=== PATIENT | male | born 1965 | race African-American/Black ===

== ENCOUNTER 2017-05-20 14:52 | Inpatient (IN) ==
--- NOTE | 2017-05-20 16:23 | XRay Report ---
History: Chest pain Date: 05/20/2017 Study: Chest x-ray PA and lateral Comparison exam: No previous currently available The cardiac silhouette is upper normal in size. There is no mediastinal mass. The pulmonary vasculature is not engorged. The lungs and pleural spaces are clear. There is mild thoracic spondylosis. Impression: No acute cardiopulmonary process PROCEDURE INTERPRETED AT [facility] Final Report Signed by: Dr. Mildred Arcos
[2017-05-20 17:13] LABS: Basophils % 0.2 % (0.0-0.8); Eosinophils # 0.1 10*3/uL (0.0-0.87); Eosinophils % 0.5 % (0.00-10.9); Hematocrit 49.4 VOL% (42.0-52.0); Hemoglobin 16.2 GM/DL (14.0-18.0); Immature Granulocytes % 0.4 %; Immature Granulocytes Absolute 0.04 #; Lymphocytes # 3.5 10*3/uL (1.4-4.0); Lymphocytes % 36.5 % (21.2-54.2); Mean Corpuscular HGB Conc 32.8 GM/DL (32-36); Mean Corpuscular Hemoglobin 23 PG (27-34); Mean Platelet Volume 9.5 FL (9.6-12.0); Monocytes # 0.8 10*3/uL (0.11-0.8); Monocytes % 8.4 % (1.7-12.7); Neutrophils # 5.2 10*3/uL (1.4-7.4); Platelet Count 302 T/CUMM (130-400); Red Blood Count 6.96 MC/CUMM (3.8-5.5); Red Cell Distribution Width 16.2 % (9.3-17.3); White Blood Count 9.7 T/CUMM (4-12)
[2017-05-20 17:28] LABS: D-Dimer <= 0.5 MG/L FEU; PT Patient Result 10.9 SECS; Partial Thromboplastin Time 28.7 SECS (0-40)
[2017-05-20 17:40] LABS: Alanine Aminotransferase 34 U/L (16-61); Alkaline Phosphatase 64 U/L (45-117); Aspartate Amino Transferase 34 U/L (0-37); Bilirubin,Total < 0.39 MG/DL (0.2-1.0); Blood Urea Nitrogen 8 MG/DL (7-18); CKMB % 4.2 %; Calcium 9.7 MG/DL (8.5-10.1); Glucose 100 MG/DL (74-106); Magnesium 2.1 MG/DL (1.8-2.4); Osmolality,Calculated 278.3 MOS/KG (273-304); Potassium 3.9 MMOL/L (3.5-5.1); Sodium 141 MMOL/L (136-145); Total Protein 7.7 G/DL (6.4-8.3)
[2017-05-20] MEDS ORDERED: ONDANSETRON 4 MG/2 ML VIAL IV STA (17:51)
[2017-05-20] MEDS ORDERED: METOPROLOL TARTRATE 5 MG/5 ML VIAL IV STA (17:51)
[2017-05-20] MEDS ORDERED: ASPIRIN 325 MG TABLET PO STA (17:51)
[2017-05-20] MEDS ORDERED: NITROGLYCERIN 2% OINT 1 INCH/GM PACK TOP STA (17:51)
[2017-05-20] MEDS ORDERED: ENOXAPARIN 100 MG/ML SYRINGE SUBCUT STA (17:51)
[2017-05-20] MEDS ORDERED: MORPHINE 2 MG/1 ML SYRINGE IV STA (17:51)
[2017-05-20] MEDS ORDERED: NITROGLYCERIN 2% OINT 1 INCH/GM PACK TOP ONE (17:58)
[2017-05-20] MEDS ORDERED: ENOXAPARIN 100 MG/ML SYRINGE SUBCUT ONE (17:58)
[2017-05-20] MEDS ORDERED: MORPHINE 2 MG/1 ML SYRINGE ONE (17:59)
[2017-05-20] MEDS ORDERED: ONDANSETRON 4 MG/2 ML VIAL ONE (17:59)
[2017-05-20] MEDS ORDERED: METOPROLOL TARTRATE 5 MG/5 ML VIAL IV ONE (17:59)
[2017-05-20] MEDS ORDERED: ASPIRIN 325 MG TABLET ONE (17:59)
--- NOTE | 2017-05-20 18:00 | Emergency Department Note ---
Fausto Capps Brittany, am scribing for, and in the presence of, Tono Howe MD 17:54. Carley Capps Charles R, MD, personally performed the services described in this documentation, ascribed by Lisa Lambert in my presence, and it is both accurate and complete . Arrival - Arrival Chief Complaint: Chest Pain Stated Complaint: chest pain x 1 mo. 2 episodes today ED Nursing Triage Note: Pt c/o chest pain with some SOB off and on x 1 month with exertion. Mode of Arrival: Ambulatory Limitations: No Limitations Source: Patient, RN Notes Reviewed Time Seen by Provider: 05/20/17 17:37 - History of Present Illness HPI Narrative: Patient is a 52 y/o black male presenting to the ED with c/o mid-sternal chest pain with an onset of a month, worsening in the past two days. Patient denies any associated sxs of SOB, N/V, diaphoresis, or radiation of pain to the arm or neck. Patient reports pain occurs in intermittent episodes, most often on exertion. He states that this pain is steady, lasting about 30 minutes in duration in each episode. Patient states that he noticed pain initially about a month ago when picking up a heavy object, then again a week or so later when picking up his 50 lb. grandson. Patient then reports that yesterday pain occurred, more severe than prior episodes a month ago. Pain resolved itself later in the day, only to onset again earlier today similar in severity to yesterday's episode. He reports having a stress test "a long time ago," but none recently. He reports a history of HTN, but denies any hx of PA or CHF. His father passed at the age of 83 due to heart disease. He admits to everyday use of cigarettes. Patient has no other complaint/pain in the ED at this time. Onset (ago): month(s) (1) Consistency: intermittent Severity: severe Severity scale (1-10): 9 Quality: aching Allergies/Adverse Reactions: Allergies Allergy/AdvReac Type Severity Reaction Status Date / Time No Known Allergies Allergy Verified 05/20/17 15:02 Review of System - Review of System 12 point system: reviewed and no additional remarkable complaints except as stated - Review of System Constitutional: Absent: chills, diaphoresis, fever Eyes: Absent: vision change Head/Ears/Nose/Throat: Absent: nasal drainage, sore throat Respiratory: Absent: respiratory distress Cardiovascular: Present: chest pain Gastrointestinal: Absent: abdominal pain, nausea, vomiting, diarrhea, constipation Genitourinary male: Absent: urgency, dysuria, frequency Musculoskeletal: Absent: arm pain, back pain, leg pain, neck pain Skin: Absent: rash Neurological: Absent: headache Psychiatric: Absent: anxiety, depression Medical,Surgical,& Family Hx - Medical History Cardio: History of: Hypertension - Surgical History Surgical History: noncontributory - Family History Family History: Reports;: Family Heart Disease, Family Hypertension - Social History Smoking Status: Current every day smoker Exam Vital Signs: Vital Signs Temperature 100.4 F H 05/20/17 15:02 Pulse Rate 92 H 05/20/17 17:05 Respiratory Rate 16 05/20/17 17:05 Blood Pressure 158/95 05/20/17 17:05 O2 Sat by Pulse Oximetry 98 05/20/17 17:05 - General General appearance: alert, in no apparent distress - Head Head exam: Present: atraumatic, normocephalic, normal inspection - Eye Eye exam: Present: normal appearance, PERRL, EOMI - ENT ENT exam: Present: normal exam, normal oropharynx - Neck Neck exam: Present: normal inspection, full ROM, trachea midline - Chest Chest inspection: Present: normal inspection, symmetric chest wall rise - Respiratory Respiratory exam: Present: normal lung sounds bilaterally - Cardiovascular Cardiovascular exam: Present: regular rate, normal rhythm, normal heart sounds - Abdominal Exam Abdominal exam: Present: soft, normal bowel sounds. Absent: tenderness - Extremities Exam Extremities exam: Present: normal inspection - Back Exam Back exam: Present: normal inspection - Neurological Exam Neurological exam: Present: alert, oriented X3, CN II-XII intact. Absent: motor sensory deficit - Psychiatric Psychiatric exam: Present: normal affect, normal mood - Skin Skin exam: Present: warm, dry Course - Consultations Consultation #1: Dr. Lee rn spine was consulted he is seen patient in the emergency room for admission Time: 17:56 Results - Labs CBC & BMP: 05/20/17 17:00 05/20/17 17:00 Lab Results: I have reviewed the patients labs Labs: Laboratory Tests 05/20/17 05/20/17 17:00 17:00 WBC 9.7 RBC 6.96 H Hgb 16.2 Hct 49.4 MCV 71.0 L MCH 23 L Plt Count 302 MPV 9.5 L INR 1.0 PT Patient/Control Mix 10.9 D-Dimer, Quantitative <= 0.5 Circ Anticoag PTT 28.7 Laboratory Tests 05/20/17 17:00 Sodium 141 Potassium 3.9 Chloride 105 Carbon Dioxide 29 BUN 8 Creatinine 0.90 Glucose 100 Total Creatine Kinase 337 H CK-MB (CK-2) 14.3 H Troponin I 3.860 H Globulin 3.7 H Albumin/Globulin Ratio 1.0 L - Diagnostic Findings Procedure: Chest x-ray: report reviewed by me (No acute cardiopulmonary process. ) Critical Care Time Critical Care Time: Yes Total Critical Care Time: 30 Disposition Clinical Impression: Non-ST elevation (NSTEMI) myocardial infarction, Chest pain, Hypertension, Fever, Elevated troponin Case discussed with: patient, patient's family Disposition: Still a Patient Condition: Guarded Time of Disposition: 17:57
[2017-05-20] MEDS ORDERED: ONDANSETRON 4 MG/2 ML VIAL IV PRN (18:08)
[2017-05-20] MEDS ORDERED: ACETAMINOPHEN 325 MG TABLET PO PRN (18:08)
[2017-05-20] MEDS ORDERED: ZALEPLON 5 MG CAPSULE PO PRN (18:08)
[2017-05-20] MEDS ORDERED: hydrALAZINE 20 MG/1 ML VIAL IV PRN (18:08)
[2017-05-20] MEDS ORDERED: TICAGRELOR 90 MG TABLET PO STA (18:08)
[2017-05-20] MEDS ORDERED: NITROGLYCERIN SL 0.4 MG TABLET SL PRN (18:08)
--- NOTE | 2017-05-20 18:24 | Cardiology History & Physical ---
Assessment and Plan - Time spent with patient Time spent with patient: Greater than 30 minutes (Examination, interview chart review discussion with Dr. Howe and documentation/orders) (1) Non-ST elevation (NSTEMI) myocardial infarction Status: Acute Assessment and plan: Do not know if this is related to his fever or not he has very classic symptoms I guess we should consider endocarditis as etiology of troponin elevation fever. Nothing to suggest pulmonary embolism by story. His chest x-ray is clear Current Visit: Yes (2) Hypertension Status: Acute Current Visit: Yes Qualifiers: Hypertension type: essential hypertension Qualified Code(s): I10 - Essential (primary) hypertension (3) Fever Status: Acute Assessment and plan: Blood cultures are ordered. Urine is also ordered. Current Visit: Yes (4) Elevated troponin Status: Acute Current Visit: Yes History of Present Illness Chief complaint: Chest pain History of present illness: Mr. Vaca is a 52 year old male with past medical history of hypertension who is followed in the outpatient setting intermittently through the urgent care clinic he does not see a physician on a routine follow-up. He just goes to immediate care when he needs his medicines. His only medicines at home are losartan 50 mg daily does not take an aspirin is not a cholesterol medicine. 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 He has a family history of coronary disease but none premature his father had a myocardial infarction and at 80. 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 It went away was not associated with nausea or vomiting. He has not had any other symptoms until today while he was spreading the [place] tightened down the load on his flatbed when he developed this same pain that did not radiate in his arm was not associated with nausea vomiting but. It resolved when he stopped. He has not had any rest discomfort. He came to the emergency room was found to have severely uncontrolled blood pressure and also interestingly a temperature of 100.4 with elevated CK CK-MB and troponin. He appears to be in no distress but continues to have sinus tachycardia and uncontrolled hypertension please see the vitals as charted. I discussed with Dr. Howe on the phone once his troponin came back and I came to the emergency room to evaluate the patient in room 17. He was a coming by his and 1 of his children. Home Medications Medication Instructions Recorded Confirmed Type Losartan Potassium 50 mg PO QPM 05/20/17 05/20/17 History Allergies Allergy/AdvReac Type Severity Reaction Status Date / Time No Known Allergies Allergy Verified 05/20/17 15:02 - Constitutional Constitutional: Absent: anorexia, chills - EENT Eyes: Absent: blurry vision, diplopia Ears: Absent: decreased hearing, ear discharge Nose, mouth and throat: Absent: dysphagia, epistaxis, lip swelling, nasal congestion, neck mass, neck pain - Cardiovascular Cardiovascular: Present: chest pain with activity. Absent: chest pain at rest, dyspnea on exertion, edema - Respiratory Respiratory: Absent: cough, dyspnea, dyspnea on exertion - Gastrointestinal Gastrointestinal: Absent: abdominal pain, bloating, dyspepsia, early satiety - Genitourinary Genitourinary: Absent: difficulty urinating, hematuria, nocturia - Musculoskeletal Musculoskeletal: Absent: arthralgias, joint swelling, limited range of motion - Neurological Neurological: Absent: abnormal speech, behavioral changes, confusion, convulsions, disequilibrium, dizziness - Psychiatric Psychiatric: Absent: anxiety, depression - Endocrine Endocrine: Absent: cold intolerance, heat intolerance - Hematologic/Lymphatic Hematologic/Lymphatic: Absent: easy bleeding, easy bruising Medical,Surgical,& Family Hx - Medical History Cardio: History of: Hypertension - Family History Family History: Reports;: Family Heart Disease, Family Hypertension - Social History Smoking Status: Current every day smoker Frequency of Alcohol Use: Occasionally (Weekend) Type of Drug Use: None Marital Status: Lives With:: Spouse Functional capacity: independent ambulation Cardiology Physical Exam - Constitutional Vitals: Vital Signs Temp Pulse Resp BP Pulse Ox 100.4 F H 92 H 16 158/95 98 05/20/17 15:02 05/20/17 17:05 05/20/17 17:05 05/20/17 17:05 05/20/17 17:05 Intake and Output 05/20/17 05/20/17 05/20/17 07:59 15:59 23:59 Other: Weight 97.522 kg Patient Weight 05/20/17 23:59 Weight 97.522 kg General appearance: no acute distress, over weight - Head Head exam: Present: normal inspection - Eye Eye exam: Present: EOMI Pupils: Present: LAURITA - ENT ENT exam: Present: normal exam - Neck Neck exam: Present: normal inspection - Respiratory Respiratory exam: Present: clear to auscultation bilaterally - Cardiovascular Cardiovascular exam: Present: regular rate and rhythm (S4) - GI/Abdominal GI/Abdominal exam: Present: normal bowel sounds - Extremities Exam Extremities exam: Present: normal inspection - Back Exam Back exam: Present: normal inspection - Neurological Exam Neurological exam: Present: alert, oriented X3 - Psychiatric Psychiatric exam: Present: normal affect, normal mood - Skin Skin exam: Present: normal color Result/EKG - Labs CBC & BMP: 05/20/17 17:00 05/20/17 17:00 Labs: Laboratory Results - last 24 hr 05/20/17 05/20/17 05/20/17 17:00 17:00 17:00 WBC 9.7 RBC 6.96 H Hgb 16.2 Hct 49.4 MCV 71.0 L MCH 23 L MCHC 32.8 RDW 16.2 Plt Count 302 MPV 9.5 L Neut % (Auto) 54.0 Lymph % (Auto) 36.5 [place] % (Auto) 8.4 Eos % (Auto) 0.5 Baso % (Auto) 0.2 Neut # (Auto) 5.2 Lymph # (Auto) 3.5 [place]ether # (Auto) 0.8 Eos # (Auto) 0.1 Baso # (Auto) 0.0 Immature Gran % 0.4 Nucleated RBC % 0.0 Immature Gran # 0.04 Nucleated RBCs # 0.00 INR 1.0 PT Patient/Control Mix 10.9 D-Dimer, Quantitative <= 0.5 Circ Anticoag PTT 28.7 Sodium 141 Potassium 3.9 Chloride 105 Carbon Dioxide 29 Anion Gap 10.9 BUN 8 Creatinine 0.90 GFR Calculation 143 BUN/Creatinine Ratio 8.00 Glucose 100 Calculated Osmolality 278.3 Calcium 9.7 Magnesium 2.1 Total Bilirubin < 0.39 AST 34 ALT 34 Alkaline Phosphatase 64 Total Creatine Kinase 337 H CK-MB (CK-2) 14.3 H CK and CKMB Interp 4.2 Troponin I 3.860 H Total Protein 7.7 Albumin 4.0 Globulin 3.7 H Albumin/Globulin Ratio 1.0 L Quality Measures - VTE Contraindication to Pharmacological VTE Prophylaxis: Already on Theraputic Agent , No Prophylaxis Needed
[2017-05-20] MEDS: SODIUM CHLORIDE 0.45% 1,000 ML IV SCH (22:37)
[2017-05-20] MEDS: TICAGRELOR 90 MG TABLET PO SCH (22:37)
[2017-05-20] MEDS: ATORVASTATIN 80 MG TABLET PO SCH (22:38)
[2017-05-20] MEDS: DOCUSATE SODIUM 100 MG CAPSULE PO SCH (22:40)
[2017-05-20] MEDS: CARVEDILOL 12.5 MG TABLET PO SCH (22:42)
[2017-05-21 05:27] LABS: Basophils % 0.3 % (0.0-0.8); Eosinophils # 0.1 10*3/uL (0.0-0.87); Eosinophils % 1.2 % (0.00-10.9); Hematocrit 46.4 VOL% (42.0-52.0); Hemoglobin 14.9 GM/DL (14.0-18.0); Immature Granulocytes % 0.2 %; Immature Granulocytes Absolute 0.02 #; Lymphocytes # 3.9 10*3/uL (1.4-4.0); Mean Corpuscular HGB Conc 32.1 GM/DL (32-36); Mean Corpuscular Hemoglobin 23 PG (27-34); Mean Corpuscular Volume 71.7 FL (87-102); Monocytes # 0.9 10*3/uL (0.11-0.8); Monocytes % 10.1 % (1.7-12.7); Neutrophils # 4.3 10*3/uL (1.4-7.4); Neutrophils % 46.2 % (38.7-73.9); Platelet Count 288 T/CUMM (130-400); Red Blood Count 6.47 MC/CUMM (3.8-5.5); Red Cell Distribution Width 15.7 % (9.3-17.3); White Blood Count 9.2 T/CUMM (4-12)
[2017-05-21 06:03] LABS: Magnesium 2.1 MG/DL (1.8-2.4); Osmolality,Calculated 279.3 MOS/KG (273-304); Potassium 3.8 MMOL/L (3.5-5.1); Risk Ratio 4.74; Thyroid Stimulating Hormone 2.43 uIU/ml (0.358-3.74)
--- NOTE | 2017-05-21 06:29 | Event Note ---
Patient has a static troponin elevation. His blood pressure has come down he remains to have low-grade temperature. Is 100.4 has come down to 99. This may represent troponin elevation from nonatherosclerotic etiology must consider myocarditis. There is no evidence of myocarditis on his ECG that I can see. I think given his classic symptomatology we still need to continue with left heart cath today. I will discuss with Dr. Grande
[2017-05-21] MEDS ORDERED: ENOXAPARIN 100 MG/ML SYRINGE SUBCUT SCH (06:30)
--- NOTE | 2017-05-21 06:44 | EKG Report ---
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
--- NOTE | 2017-05-21 07:47 | EKG Report ---
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
--- NOTE | 2017-05-21 07:55 | EKG Report ---
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
[2017-05-21] MEDS ORDERED: DIAZEPAM 5 MG TABLET PO ONE (08:00)
[2017-05-21] MEDS ORDERED: diphenhydrAMINE CAP 25 MG CAPSULE PO ONE (08:00)
[2017-05-21] MEDS: LOSARTAN 50 MG TABLET PO SCH (08:21)
[2017-05-21] MEDS: ASPIRIN EC 81 MG TABLET PO SCH (08:21)
[2017-05-21] MEDS: amLODIPine 5 MG TABLET PO SCH (08:22)
[2017-05-21] MEDS: CARVEDILOL 12.5 MG TABLET PO SCH ×2 (08:22→21:32)
[2017-05-21] MEDS: TICAGRELOR 90 MG TABLET PO SCH ×2 (08:22→21:32)
[2017-05-21] MEDS: PANTOPRAZOLE 40 MG TABLET PO SCH (08:22)
[2017-05-21] MEDS: DOCUSATE SODIUM 100 MG CAPSULE PO SCH ×2 (08:47→21:31)
[2017-05-21] MEDS: SODIUM CHLORIDE 0.45% 1,000 ML IV SCH (09:05)
--- NOTE | 2017-05-21 09:21 | EKG Report ---
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
[2017-05-21] MEDS ORDERED: HEPARIN/NACL 0.9% 2 UNITS/ML 500 ML IV ONE ×2 (09:45→09:46)
[2017-05-21] MEDS ORDERED: HYDROmorphone 2 MG/1 ML VIAL ONE (09:45)
[2017-05-21] MEDS ORDERED: NITROGLYCERIN DRIP 50 MG/250 ML BOTTLE IV ONE (09:45)
[2017-05-21] MEDS ORDERED: LIDOCAINE 1% 20 ML VIAL ONE (09:45)
[2017-05-21] MEDS ORDERED: VERAPAMIL 5 MG/2 ML VIAL ONE (09:45)
[2017-05-21] MEDS ORDERED: MIDAZOLAM 2 MG/2 ML VIAL ONE (09:45)
[2017-05-21] MEDS ORDERED: TICAGRELOR 90 MG TABLET ONE (10:08)
--- NOTE | 2017-05-21 10:52 | Cardiac Catheterization ---
Date of Procedure:: 05/21/17 Procedure: CLINICAL HISTORY: Please see the history and physical. The patient presented with unstable angina and is undergoing cardiac catheterization for definitive coronary artery assessment possible revascularization. PROCEDURES PERFORMED: 1. Right radial percutaneous arteriotomy 2. Left heart catheterization 3. Resting hemodynamics 4. Left ventriculography. 5. Coronary arteriography 6. Hemoband placement 7. Percutaneous coronary intervention with a 2.75 x 8 mm Xience alpine drug- eluting stent inflated to 20 celeste in the mid left anterior descending coronary artery. DESCRIPTION OF PROCEDURE: After obtaining informed consent, the patient was taken to the brush clearing laborer, prepped and draped in the usual sterile manner. We accessed the right radial artery using modified Seldinger technique in the usual fashion. We placed a 6-Latvian slim sheath without difficulty. We then used a Tig catheter to engage the right coronary and left main coronary arteries to perform angiography in multiple orthogonal views. We then proceeded directly to percutaneous coronary intervention. We engaged the left main coronary artery with an EBU 3.5 interventional guide and passed PT Graphix wire beyond the area of stenosis in the mid left anterior descending artery. We then performed primary stenting with a 2.75 x 8 mm Xience alpine drug- eluting stent which was inflated to 20 celeste of pressure. Follow-up angiography showed an outstanding result with no significant residual stenosis at the site of intervention. There is a very slight amount of impingement on the diagonal branch at the distal margin of the stent. I crossed this area with the wire and attempted to cross with a 2.25 x 8 mm Susan NC balloon. The balloon would not cross and we simply withdrew it and performed one final angiographic shot which showed a excellent angiographic result. There were no problems or complications during the procedure. We then used an angled pigtail catheter to perform a left heart catheterization with left ventriculogram and pressure measurement in the usual fashion. After removing the catheter, we placed a HemoBand and removed the sheath without difficulty. There were no problems during the case. HEMODYNAMICS: Please see the accompanying data sheet. CORONARIES: The left main coronary artery is a large-caliber vessel which bifurcates into the left anterior descending and left circumflex coronary arteries. The left main coronary artery is angiographically free of significant obstructive disease The left circumflex coronary artery is a large-caliber vessel which gives off a large bifurcating obtuse marginal and a small posterior lateral system. There is an ostial 50% stenosis in this vessel. This does not appear to be flow- limiting as the vessel is approximately 4 mm in diameter. The left anterior descending is a moderate-sized vessel which gives off 2 moderate-sized diagonal branches. There is a focal 80-90% stenosis in the mid left anterior descending artery. The remainder of the vessel has mild nonobstructive luminal irregularities. The right coronary artery is a moderate-sized vessel which gives off the posterior descending artery and a posterolateral system. There are mild luminal irregularities of up to 30% in the right coronary artery system but no significant focal obstructive disease is seen. LEFT VENTRICULOGRAPHY: Left ventriculogram shows left ventricular ejection fraction of approximately 50% with very mild mid anterolateral and infero- apical hypokinesis. IMPRESSION: 1. Successful percutaneous coronary intervention to the mid left anterior descending coronary artery with a 2.75 x 8 mm science alpine drug-eluting stent as described above. 2. Preserved left ventricular ejection fraction with mild wall motion abnormality as described above. PLAN: The patient will be transferred back to his room for postintervention monitoring and management. We will continue risk factor modification. Anesthesia: minimal conscious sedation Surgeon / Physician: Rikki Grande Condition: stable Disposition: floor - Medications / Follow-up
--- NOTE | 2017-05-21 11:35 | EKG Report ---
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
[2017-05-21] MEDS: ATORVASTATIN 80 MG TABLET PO SCH (21:32)
[2017-05-22 05:31] LABS: Basophils % 0.1 % (0.0-0.8); Eosinophils # 0.1 10*3/uL (0.0-0.87); Eosinophils % 1.4 % (0.00-10.9); Hematocrit 44.5 VOL% (42.0-52.0); Hemoglobin 14.6 GM/DL (14.0-18.0); Immature Granulocytes % 0.1 %; Immature Granulocytes Absolute 0.01 #; Lymphocytes # 2.2 10*3/uL (1.4-4.0); Lymphocytes % 30.1 % (21.2-54.2); Mean Corpuscular HGB Conc 32.8 GM/DL (32-36); Mean Corpuscular Hemoglobin 23 PG (27-34); Mean Corpuscular Volume 70.4 FL (87-102); Mean Platelet Volume 10.4 FL (9.6-12.0); Monocytes # 0.7 10*3/uL (0.11-0.8); Monocytes % 9.3 % (1.7-12.7); Neutrophils # 4.4 10*3/uL (1.4-7.4); Platelet Count 279 T/CUMM (130-400); Red Blood Count 6.32 MC/CUMM (3.8-5.5); Red Cell Distribution Width 15.1 % (9.3-17.3); White Blood Count 7.4 T/CUMM (4-12)
[2017-05-22 06:10] LABS: CKMB % 3.4 %; Calcium 8.7 MG/DL (8.5-10.1); Osmolality,Calculated 277.4 MOS/KG (273-304)
[2017-05-22 06:11] LABS: Troponin I Only 2.68 NG/ML (0.00-0.045)
--- NOTE | 2017-05-22 07:35 | EKG Report ---
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
[2017-05-22 07:50] VITALS: BP 145/79
[2017-05-22] MEDS: amLODIPine 5 MG TABLET PO SCH (08:27)
[2017-05-22] MEDS: CARVEDILOL 12.5 MG TABLET PO SCH (08:27)
[2017-05-22] MEDS: ASPIRIN EC 81 MG TABLET PO SCH (08:27)
[2017-05-22] MEDS: TICAGRELOR 90 MG TABLET PO SCH (08:27)
[2017-05-22] MEDS: LOSARTAN 50 MG TABLET PO SCH (08:27)
[2017-05-22] MEDS: DOCUSATE SODIUM 100 MG CAPSULE PO SCH (08:27)
[2017-05-22] MEDS: PANTOPRAZOLE 40 MG TABLET PO SCH (08:27)
--- NOTE | 2017-05-22 09:02 | Discharge Summary ---
Laura Capps April RN, am scribing for, and in the presence of, Amanda Lee, DO 09 :00. 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 Vaca is a 52 year old male with past medical history of hypertension who is followed in the outpatient setting intermittently through the urgent care clinic he does not see a physician on a routine follow-up. He first developed chest pain about a month ago that he described as a dull pressure in his chest. He had no other symptoms until 05/20/2017 when he developed the same pain with exertion and resolves with rest. He presented to the emergency department for further evaluation and was found to have severely uncontrolled blood pressure elevated cardiac biomarkers. He was taken for heart catheterization by Dr. Grande 05/21/2017 with the following findings: 1. Successful percutaneous coronary intervention to the mid left anterior descending coronary artery with a 2.75 x 8 mm Xience alpine drug-eluting stent. 2. Preserved left ventricular ejection fraction with mild wall motion abnormality as described above. Today he is seen resting in bed in no acute distress. He denies any further chest pain or shortness of breath. Vital signs have been stable throughout the night, blood pressure has improved during this admission. This morning it is 134/71. monitor and storage bin tender currently shows sinus rhythm heart rates in the 70s. Right wrist heart cath access site is soft without evidence of bleeding or hematoma. His troponin is trending down, today it is 2.680. He has met maximum benefit from hospitalization will be discharged home today. We will schedule follow-up with Dr. Lee in the office next week with an EKG. He will be discharged home on his home medication of losartan 50 mg daily as well as addition of the following: Carvedilol 12.5, twice daily Amlodipine 5 mg daily Atorvastatin 80 mg nightly Nitrostat 0.4 mg sublingual as needed chest pain Aspirin 81 mg daily Brilinta 90 mg twice daily Lorsartan 50mg daily I discussed with him the importance of taking Brilinta and baby aspirin every day without fail. He voiced understanding. Smoking cessation was also discussed with him. The patient is to stay off of work until he follows up with me next . 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 - Time spent with patient Time with patient DS: Less than 30 minutes Time spent discussing smoking cessation with patient: 3 to 10 minutes Diagnosis - Discharge Diagnosis (1) CAD (coronary artery disease) Status: Chronic (2) Hypertension Status: Chronic (3) Dyslipidemia Status: Acute (4) Non-ST elevation (NSTEMI) myocardial infarction Status: Acute Specialty Discharge - Follow Up or Referrals Follow up with: Amanda Lee DO [Physician] - 05/28/17 (with EKG) Discharge Plan - Discharge Data Disposition: Disch To Home/Self Care Condition at Discharge: Stable Discharge Diet: heart healthy Activity: other (Post cath expectations) Hygiene: other (Post cath expectations) Weight Bearing at Discharge: other (Post cath expectations) Driving: other (Post cath expectations) Contact your physician if you experience:: fever over 101, Difficulty voiding, Redness or swelling, Nausea/Vomiting, Shortness of breath, Bleeding, pain uncontrolled by pain medications - Discharge Medications New Aspirin EC Tab 81 mg PO DAILY tablet Atorvastatin [Lipitor] 80 mg PO BEDTIME #30 tablet Carvedilol [Coreg] 12.5 mg PO BID #60 tablet Ticagrelor [Brilinta] 90 mg PO BID #60 tablet amLODIPine [Norvasc] 5 mg PO DAILY #30 tablet Nitroglycerin Sl Tab [Nitrostat] 0.4 mg SL Q5M PRN #25 tablet PRN Reason: Chest Pain Continue Losartan Potassium 50 mg PO QPM - Follow Up or Referral Follow Up: Amanda Lee DO [Physician] - 05/28/17 (with EKG) - Forms/Instructions Instructions: Myocardial Infarction (GEN), Left Heart Catheterization (DC), How to Stop Smoking (DC), Heart Healthy Diet (GEN), Cigarette Smoking and Your Health (GEN), Coronary Intravascular Stent Placement (DC) Exam - Constitutional Vitals: Period Temp Pulse Resp BP Sys/Joiner Pulse Ox Last 24 Hr 96.8 F-98.9 F 62-81 16-20 116-140/58-88 95-100 General appearance: no acute distress, over weight - Head Head exam: Absent: abrasion, hematoma - Eye Eye exam: Absent: periorbital swelling, laceration to eyelids - Neck Neck exam: Absent: tenderness - Respiratory Respiratory exam: Present: clear to auscultation bilaterally. Absent: accessory muscle use, chest wall tenderness - Cardiovascular Cardiovascular exam: Present: regular rate and rhythm. Absent: rubs, tachycardia - GI/Abdominal GI/Abdominal exam: Present: normal bowel sounds, soft. Absent: distended, tenderness - Extremities Exam Extremities exam: Present: other (Right wrist soft without evidence of bleeding or hematoma). Absent: edema - Neurological Exam Neurological exam: Present: alert, oriented X3 - Psychiatric Psychiatric exam: Present: normal affect, normal mood - Skin Skin exam: Present: warm, dry Discharge Results Procedures and tests throughout hospitalization: Pending Orders 05/20/17 18:23 Blood Culture Stat 05/21/17 09:05 CL heart Routine Labs on day of discharge: Labs from last 24 hours 05/22/17 05/22/17 05:03 05:03 WBC 7.4 RBC 6.32 H Hgb 14.6 Hct 44.5 MCV 70.4 L MCH 23 L MCHC 32.8 RDW 15.1 Plt Count 279 MPV 10.4 Neut % (Auto) 59.0 Lymph % (Auto) 30.1 Miner % (Auto) 9.3 Eos % (Auto) 1.4 Baso % (Auto) 0.1 Neut # (Auto) 4.4 Lymph # (Auto) 2.2 Miner # (Auto) 0.7 Eos # (Auto) 0.1 Baso # (Auto) 0.0 Immature Gran % 0.1 Nucleated RBC % 0.0 Immature Gran # 0.01 Nucleated RBCs # 0.00 Sodium 140 Potassium 4.0 Chloride 106 Carbon Dioxide 23 Anion Gap 15.0 BUN 11 Creatinine 0.90 GFR Calculation 142 BUN/Creatinine Ratio 12.00 Glucose 98 Calculated Osmolality 277.4 Calcium 8.7 Total Creatine Kinase 178 D CK-MB (CK-2) 6.0 H D CK and CKMB Interp 3.4 Troponin I 2.680 H D Preliminary micro results at discharge 05/20/17 18:23 Blood Culture - Preliminary Blood No growth at 1 day 05/20/17 18:23 Blood Culture - Preliminary Blood No growth at 1 day - Imaging and Cardiology Cardiology Procedure: report reviewed by me Procedure: Chest x-ray: report reviewed by me DS: Provider Consults: 05/21/17 02:11 Consult to Pastoral Services [CONS] Routine Comment: Pastoral Screen: Request Patient Registration Clerk Visit 05/21/17 06:53 Consult to Cardiac Rehabilitation [CONS] Routine Reason for Cardiac Rehabilitation: Other Consult Comment: Stemi Report Expected date of discharge: 05/22/17 Rosa Capps Shea, DO, personally performed the services described in this documentation, ascribed by Meliza Sanchez RN in my presence, and it is both accurate and complete 901 .
== END 2017-05-22 11:10 | disposition home or self-care (01) | DRG 247 ==
LOC: N.ED 14:52 → N.EDINP 18:08 → N.TELES 18:30
PROVIDERS: ADMIT Internal Medicine Cardiovascular Disease; ATTEND Internal Medicine Cardiovascular Disease
PROC: CLCCHCL (ICD-10-PCS; 2017-05-21 11:15)

== ENCOUNTER 2017-11-10 16:19 | Observation (INO) ==
[2017-11-10] MEDS ORDERED: ASPIRIN 325 MG TABLET PO STA (17:18)
[2017-11-10] MEDS ORDERED: ENOXAPARIN 100 MG/ML SYRINGE SUBCUT STA (17:18)
[2017-11-10 18:08] LABS: Basophils % 0.1 % (0.0-0.8); Eosinophils # 0.1 10*3/uL (0.0-0.87); Eosinophils % 1.6 % (0.00-10.9); Hematocrit 40.2 VOL% (42.0-52.0); Hemoglobin 13.2 GM/DL (14.0-18.0); Immature Granulocytes % 0.3 %; Immature Granulocytes Absolute 0.02 #; Lymphocytes # 2.8 10*3/uL (1.4-4.0); Lymphocytes % 36.1 % (21.2-54.2); Mean Corpuscular HGB Conc 32.8 GM/DL (32-36); Mean Corpuscular Hemoglobin 23 PG (27-34); Mean Corpuscular Volume 69.7 FL (87-102); Mean Platelet Volume 9.8 FL (9.6-12.0); Monocytes # 0.6 10*3/uL (0.11-0.8); Monocytes % 8.1 % (1.7-12.7); Neutrophils # 4.1 10*3/uL (1.4-7.4); Neutrophils % 53.8 % (38.7-73.9); Platelet Count 289 T/CUMM (130-400); Red Blood Count 5.77 MC/CUMM (3.8-5.5); Red Cell Distribution Width 14.9 % (9.3-17.3); White Blood Count 7.6 T/CUMM (4-12)
[2017-11-10 18:36] LABS: Alanine Aminotransferase 46 U/L (16-61); Albumin 3.3 G/DL (3.4-5.0); Alkaline Phosphatase 64 U/L (45-117); Aspartate Amino Transferase 17 U/L (0-37); Bilirubin,Total < 0.39 MG/DL (0.2-1.0); Blood Urea Nitrogen 8 MG/DL (7-18); Calcium 8.7 MG/DL (8.5-10.1); Glucose 147 MG/DL (74-106); Magnesium 1.9 MG/DL (1.8-2.4); Osmolality,Calculated 281.3 MOS/KG (273-304); Potassium 3.8 MMOL/L (3.5-5.1); Sodium 141 MMOL/L (136-145); Total Protein 6.6 G/DL (6.4-8.3)
[2017-11-10] MEDS ORDERED: ENOXAPARIN 100 MG/ML SYRINGE SUBCUT ONE (19:42)
[2017-11-10] MEDS ORDERED: ASPIRIN 325 MG TABLET ONE (19:42)
[2017-11-10 19:54] LABS: PT Patient Result 10.7 SECS
[2017-11-10] MEDS ORDERED: MORPHINE 2 MG/1 ML SYRINGE IV PRN (22:16)
[2017-11-10] MEDS ORDERED: guaiFENesin/DM ER 600-30 MG TABLET PO PRN (22:16)
[2017-11-10] MEDS ORDERED: POTASSIUM CHLORIDE 20 MEQ TABLET PO PRN (22:16)
[2017-11-10] MEDS ORDERED: MAGNESIUM SULF RIDER 2 GM in PREMIX 1 EACH IV PRN (22:16)
[2017-11-10] MEDS ORDERED: BISACODYL 5 MG TABLET PO PRN (22:16)
[2017-11-10] MEDS ORDERED: ONDANSETRON 4 MG/2 ML VIAL IV PRN (22:16)
[2017-11-10] MEDS ORDERED: ACETAMINOPHEN 325 MG TABLET PO PRN (22:16)
[2017-11-10] MEDS ORDERED: NITROGLYCERIN SL 0.4 MG TABLET SL PRN (22:16)
[2017-11-10] MEDS ORDERED: MAGNESIUM SULF RIDER 4 GM in PREMIX 1 EACH IV PRN (22:16)
[2017-11-10 23:05] LABS: Troponin I Only < 0.015 NG/ML (0.00-0.045)
[2017-11-10] MEDS: SODIUM CHLORIDE 0.9% 1,000 ML IV SCH (23:14)
[2017-11-10] MEDS: ZALEPLON 5 MG CAPSULE PO PRN (23:14)
[2017-11-11 00:19] LABS: Troponin I Only 0.017 NG/ML (0.00-0.045)
[2017-11-11] MEDS: NITROGLYCERIN 2% OINT 1 INCH/GM PACK TOP SCH ×4 (01:22→17:08)
[2017-11-11 02:55] LABS: Basophils % 0.3 % (0.0-0.8); Eosinophils # 0.1 10*3/uL (0.0-0.87); Eosinophils % 1.7 % (0.00-10.9); Hematocrit 41.7 VOL% (42.0-52.0); Hemoglobin 13.5 GM/DL (14.0-18.0); Immature Granulocytes % 0.1 %; Immature Granulocytes Absolute 0.01 #; Lymphocytes % 52.8 % (21.2-54.2); Mean Corpuscular HGB Conc 32.4 GM/DL (32-36); Mean Corpuscular Hemoglobin 23 PG (27-34); Mean Corpuscular Volume 69.8 FL (87-102); Mean Platelet Volume 10.5 FL (9.6-12.0); Monocytes # 0.6 10*3/uL (0.11-0.8); Monocytes % 7.9 % (1.7-12.7); Neutrophils # 2.8 10*3/uL (1.4-7.4); Neutrophils % 37.2 % (38.7-73.9); Platelet Count 298 T/CUMM (130-400); Red Blood Count 5.97 MC/CUMM (3.8-5.5); Red Cell Distribution Width 15.8 % (9.3-17.3); White Blood Count 7.6 T/CUMM (4-12)
[2017-11-11 03:38] LABS: Calcium 8.8 MG/DL (8.5-10.1); Magnesium 2.1 MG/DL (1.8-2.4); Osmolality,Calculated 279.3 MOS/KG (273-304); Potassium 3.8 MMOL/L (3.5-5.1)
[2017-11-11 03:42] LABS: Alanine Aminotransferase 46 U/L (16-61); Albumin 3.2 G/DL (3.4-5.0); Alkaline Phosphatase 61 U/L (45-117); Aspartate Amino Transferase 14 U/L (0-37); Bilirubin,Total < 0.39 MG/DL (0.2-1.0); Blood Urea Nitrogen 8 MG/DL (7-18); Calcium 8.6 MG/DL (8.5-10.1); Cholesterol 172 MG/DL (50-200); Glucose 113 MG/DL (74-106); HDL Cholesterol 31 MG/DL (40-60); Magnesium 2.1 MG/DL (1.8-2.4); Osmolality,Calculated 279.3 MOS/KG (273-304); Potassium 3.7 MMOL/L (3.5-5.1); Risk Ratio 5.55; Sodium 141 MMOL/L (136-145); Total Protein 6.3 G/DL (6.4-8.3); Triglycerides 113 MG/DL (2-150); Troponin I Only < 0.015 NG/ML (0.00-0.045); VLDL CHOLESTEROL 22.6 MG/DL
[2017-11-11 04:28] LABS: Band Neutrophils 2 % (0-10); Eosinophils 2 % (0-10); Lymphocytes 60 % (20-55); Myelocytes 3 %; Segmented Neutrophils 31 % (50-85); Total Cells Counted 100
[2017-11-11 04:29] LABS: Anisocytosis 1+; Platelet Estimate Normal
[2017-11-11] MEDS: PANTOPRAZOLE 40 MG TABLET PO SCH (08:53)
[2017-11-11] MEDS: ASPIRIN EC 81 MG TABLET PO SCH (08:53)
[2017-11-11] MEDS: CLOPIDOGREL 75 MG TABLET PO SCH (08:53)
[2017-11-11] MEDS: ENOXAPARIN 100 MG/ML SYRINGE SUBCUT SCH ×2 (08:54→21:42)
[2017-11-11] MEDS ORDERED: ASPIRIN EC 325 MG TABLET PO SCH (09:00)
[2017-11-11] MEDS ORDERED: POTASSIUM CHLORIDE RIDER 10 MEQ in PREMIX 1 EACH IV PRN (09:42)
[2017-11-11] MEDS ORDERED: diphenhydrAMINE CAP 25 MG CAPSULE PO ONE (09:42)
[2017-11-11] MEDS ORDERED: DIAZEPAM 5 MG TABLET PO ONE (09:42)
[2017-11-11] MEDS ORDERED: MAGNESIUM SULF RIDER 2 GM in PREMIX 1 EACH IV PRN (09:50)
[2017-11-11] MEDS ORDERED: NITROGLYCERIN DRIP 50 MG/250 ML BOTTLE IV ONE (11:11)
[2017-11-11] MEDS ORDERED: HEPARIN/NACL 0.9% 2 UNITS/ML 2,000 ML IV ONE (11:11)
[2017-11-11] MEDS ORDERED: LIDOCAINE 1% 20 ML VIAL ONE (11:11)
[2017-11-11] MEDS ORDERED: HYDROmorphone 2 MG/1 ML VIAL ONE (11:12)
[2017-11-11] MEDS ORDERED: VERAPAMIL 5 MG/2 ML VIAL ONE (11:12)
[2017-11-11] MEDS ORDERED: MIDAZOLAM 2 MG/2 ML VIAL ONE (11:12)
[2017-11-11] MEDS ORDERED: CLOPIDOGREL 300 MG TABLET ONE (11:28)
[2017-11-11] MEDS ORDERED: SODIUM CHLORIDE 0.9% 1,000 ML IV SCH (12:00)
[2017-11-11] MEDS: SODIUM CHLORIDE 0.9% 1,000 ML IV SCH (12:43)
[2017-11-11] MEDS: ZALEPLON 5 MG CAPSULE PO PRN (21:42)
[2017-11-12] MEDS: NITROGLYCERIN 2% OINT 1 INCH/GM PACK TOP SCH ×3 (01:24→11:39)
[2017-11-12] MEDS: SODIUM CHLORIDE 0.9% 1,000 ML IV SCH (02:12)
[2017-11-12 05:04] LABS: Basophils % 0.1 % (0.0-0.8); Eosinophils # 0.1 10*3/uL (0.0-0.87); Eosinophils % 1.8 % (0.00-10.9); Hemoglobin 14.1 GM/DL (14.0-18.0); Immature Granulocytes % 0.3 %; Immature Granulocytes Absolute 0.02 #; Lymphocytes # 2.9 10*3/uL (1.4-4.0); Lymphocytes % 42.3 % (21.2-54.2); Mean Corpuscular HGB Conc 33.6 GM/DL (32-36); Mean Corpuscular Hemoglobin 23 PG (27-34); Mean Corpuscular Volume 69.1 FL (87-102); Mean Platelet Volume 10.4 FL (9.6-12.0); Monocytes # 0.6 10*3/uL (0.11-0.8); Monocytes % 9.1 % (1.7-12.7); Neutrophils # 3.2 10*3/uL (1.4-7.4); Neutrophils % 46.4 % (38.7-73.9); Platelet Count 317 T/CUMM (130-400); Red Blood Count 6.08 MC/CUMM (3.8-5.5); Red Cell Distribution Width 14.9 % (9.3-17.3); White Blood Count 6.8 T/CUMM (4-12)
[2017-11-12 05:27] LABS: Calcium 8.5 MG/DL (8.5-10.1); Osmolality,Calculated 277.4 MOS/KG (273-304)
[2017-11-12 05:40] LABS: Troponin I Only 0.071 NG/ML (0.00-0.045)
[2017-11-12 08:51] VITALS: BP 139/86
[2017-11-12] MEDS: CLOPIDOGREL 75 MG TABLET PO SCH (09:16)
[2017-11-12] MEDS: PANTOPRAZOLE 40 MG TABLET PO SCH (09:16)
[2017-11-12] MEDS: ASPIRIN EC 81 MG TABLET PO SCH (09:16)
[2017-11-12] MEDS: ENOXAPARIN 100 MG/ML SYRINGE SUBCUT SCH (09:16)
== END 2017-11-12 13:00 | disposition home or self-care (01) ==
LOC: N.ED 16:19 → INTOOBSV 19:11 → N.EDINP 19:11 → N.TELEN 21:35
PROVIDERS: ADMIT Internal Medicine Cardiovascular Disease; ATTEND Internal Medicine Cardiovascular Disease
PROC: CLCCHCL (ICD-10-PCS; 2017-11-11 11:45)